=== PATIENT | female | born 1985 | race Caucasian/White ===

== ENCOUNTER 2024-09-21 12:31 | Emergency (ER) | payer MEDICARE, SELFPAY ==
[2024-09-21 12:39] VITALS: BP 117/83
[2024-09-21 13:00] LABS: % Basophils 0.8 % (0-2); % Eosinophils 2.5 % (0-6); % Immature Granulocytes 0.3 % (0-0.5); % Lymphocytes 28.5 % (20.5-51.1); % Monocytes 8.5 % (1.7-9.3); % Neutrophils 59.4 % (42.2-75.2); Absolute Basophils 0.1 10^3/uL (0-0.2); Absolute Eosinophils 0.2 10^3/uL (0-0.7); Absolute Lymphocytes 2.2 10^3/uL (1.2-3.4); Absolute Monocytes 0.7 10^3/uL (0.1-0.6); Absolute Neutrophils 4.7 10^3/uL (1.4-6.5); Hematocrit 41.1 % (37.0-47.0); Hemoglobin 14.1 g/dL (12.0-16.0); Mean Corp Hgb Conc. 34.3 g/dL (33.0-37.0); Mean Corpuscular Hgb 33.1 pg (27.0-31.0); Mean Corpuscular Volume 96.5 fL (81.0-99.0); Mean Platelet Volume 9.5 fL (7.4-10.4); Nucleated Red Blood Cells % 0 %; Platelet Count 291 10^3/uL (130-400); Red Blood Cell Count 4.26 10^6/uL (4.20-5.40); Red Cell Dist. Width 12.2 % (11.5-14.5); White Blood Cell Count 7.9 10^3/uL (4.8-10.8)
[2024-09-21 13:02] VITALS: BP 111/81
[2024-09-21 13:11] LABS: ALT (SGPT) 28 U/L (0-35); AST (SGOT) 20 U/L (14-36); Albumin 4.6 g/dl (3.5-5.0); Alkaline Phosphatase 60 U/L (38-126); Blood Urea Nitrogen 10 mg/dl (7-17); Calcium 9.9 mg/dl (8.4-10.2); Carbon Dioxide 27 mmol/L (22-30); Chloride 108 mmol/L (98-107); Estimated Creatinine Clearance 118 ml/min; Glucose 114 mg/dl (70-99); Potassium 4.6 mmol/L (3.5-5.1); Sodium 140 mmol/L (135-145); Total Bilirubin 0.4 mg/dl (0.2-1.3); Total Protein 7.3 g/dl (6.3-8.2); eGFR > 60.00
--- NOTE | 2024-09-21 13:35 | ED.GENMED ---
History of Present Illness
General
Chief Complaint: Problems
Source: patient
Exam Limitations: none
Time Seen by Provider: 09/21/24 13:23
History of Present Illness
History of Present Illness:
See MDM
Past History
Past History
ED Past Medical History: None
ED Past Surgical History: None
Social History
Tobacco: Non-smoker
Alcohol: None
Phy Exam
Physical Exam
Physical Exam:
See MDM
Course
Orders/Labs/Results
Orders:
Orders
09/21/24 12:51
Type And Crossmatch [Type+Screen] Urgent
Beta HCG Quantitative Urgent
Is this a screen?: No
Comment: 6.5 weeeks , threatened AB.
Complete Blood Count/With Diff Urgent
Comprehensive Metabolic Panel Urgent
TSH Reflex To Free T4 Urgent
Comment: ADD ON
09/21/24 13:12
ABO2 Urgent
BBK Wristband Number:
Associate notified that ABO2 has been ordered: Y
Date: 09/21/24
Time: 13:00
Spring Fitter ID: [id number]
09/21/24 13:34
Add On- LAB Urgent
Tests Added?: TSH reflex Free T4
09/21/24 13:36
Rho (D) Immune Globulin [Rhogam] 300 mcg IM ONCE ONE
09/21/24 13:39
* Blood Bank Products Urgent
Blood Bank Products: *Rhogam - Full Dose
Quantity: 300mg
Transfuse Today: Yes
Reason: Other
Other reason: Vaginal bleeding/miscarriage
09/21/24 13:45
US 1st Trimester Urgent
Reason For Exam: abd cramping, vaginal bleeding
09/21/24 13:48
0.9% Sodium Chloride 1000 ml [Nss] 1,000 ml IV BOLUS
Abnormal Lab Results
09/21/24
12:51
MCH 33.1 H pg
(27.0-31.0)
Absolute Monos (auto) 0.7 H 10^3/uL
(0.1-0.6)
Chloride 108 H mmol/L
(98-107)
Glucose 114 H mg/dl
(70-99)
09/21/24 12:51
09/21/24 12:51
Vital Signs
Initial and Last Documented VS:
Initial Vital Signs
Temp Pulse Resp BP Pulse Ox
98.4 F 104 16 117/83 99
09/21/24 12:39 09/21/24 12:39 09/21/24 12:39 09/21/24 12:39 09/21/24 12:39
Last Documented Vital Signs
Temp Pulse Resp BP Pulse Ox
98.4 F 102 16 111/81 99
09/21/24 12:39 09/21/24 13:02 09/21/24 13:02 09/21/24 13:02 09/21/24 13:01
Information
Weeks gestation: N/A
Location: N/A
MDM/Problems Addressed
Differential Diagnosis Includes:
HPI and MDM Narrative:
38-year-old female presenting for vaginal bleeding. Patient states she is about 6 and half weeks . She is G3, P0. Patient had recent ultrasound showing IUP with heartbeat. She developed significant bleeding this morning and abdominal
cramping. Patient is concerned about another miscarriage
On exam, she has a soft abdomen. She is appropriately tearful.
Patient states she is Rh-. Will order RhoGAM and obtain ultrasound
Physical exam
General: Well appearing and non-toxic
HEENT: protecting airway
Neck: appears supple
CV: No evidence of cyanosis
Resp: No accessory muscle use
Abd: Non-distended. Mild abdominal cramping
Extremities: No deformities
Neuro: alert
Psych: Tearful and upset
Skin: Intact
Problems Addressed including Acute and Chronic Conditions affecting care:
1. Vaginal bleeding
Acuity: acute
Prognosis: stable
Details: Likely in the setting of miscarriage. Will obtain ultrasound
Updates
Floor Molder called indicating empty uterus. Patient understands diagnosis of miscarriage and will follow-up with her OB
Differential Diagnosis (but not limited to): Vaginal bleeding, miscarriage
Testing considered: Urinalysis
Drug therapy (if applicable): OTC meds, please see d/c instruction regarding Rx drugs
Amount and/or Complexity of Data Reviewed
Clinical info obtained from: Patient
External data reviewed: N/A
Labs I independently reviewed (but not limited to): Hemoglobin normal
Radiology: Ultrasound report given verbally by door furring installer
Pulse Ox: not hypoxic
EKG independently reviewed: N/A
Tester Waste Disposal Leakage: N/A
Critical Care: N/A
Risk of Complication:
Social Determinants of health: Good social support
Discussed with other providers: N/A
Escalation of Care includes Admit/Obs: After being observed in the Emergency Department, pt stable for discharge.
Occasional wrong word or 'sound a like' substitutions may have occurred due to the inherent limitations of voice recognition software. Read the chart carefully and recognize, using context, where substitutions have occurred.
*Critical Care Note
Total Time (30-74mins, 75-104mins- exclusive of procedures): Not Applicable
ED Attending Note
-
Portions of this chart may have been created with voice recognition software.� Occasional wrong word or��sound alike� substitutions may have occurred due to the inherent limitations of voice recognition software.
Discharge Plan
Departure
Patient Disposition: Home (Routine Discharge)
Date of Disposition: 09/21/24
Time of Disposition: 14:51
Patient with high blood pressure during this ER visit?: No
Discharge Problem:
Complete miscarriage
Instructions: Miscarriage (DC)
Prescriptions:
No Action
No Current Medications
0
Referrals:
Bebe Mancilla MD [Family Provider] -
Activity Restrictions/Additional Instructions:
Please follow-up with your ADMINISTRATIVE VOLUNTEER. Return for worsening symptoms.
Interventions
Interventions:
*Risk Screen - Suicide Last Done: 09/21/24 12:57
*General Assessment Last Done: 09/21/24 12:57
*Neglect/Abuse Screening Last Done: 09/21/24 12:57
*ED- Fall Risk Assessment Last Done: 09/21/24 12:57
*ED COVID-19 Vaccine History Last Done: 09/21/24 12:57
ED-Female Genitourinary Assessment Last Done: 09/21/24 12:57
Discharge Date and Time
Print Language: [email or web address]
[2024-09-21] MEDS: NSS 1000 IV (13:49)
[2024-09-21 14:24] VITALS: BP 116/83
[2024-09-21 14:29] LABS: TSH Reflex To Free T4 1.84 uIU/ml (0.47-4.68)
[2024-09-21] MEDS: RHOGAM 300 MCG IM (14:36)
[2024-09-21] MEDS: TORADOL 30 MG IV (14:58)
[2024-09-21 15:00] VITALS: BP 121/72
== END 2024-09-21 15:04 | disposition home or self-care (01) ==
LOC: EMR 12:31
PROVIDERS: Emergency Medicine; EMERGENCY PHYSICIAN Student in an Organized Health Care Education/Training Program; FAMILY PHYSICIAN Obstetrics & Gynecology
DX: O03.9 Complete or unspecified spontaneous abortion without complication (principal); R10.9 Unspecified abdominal pain
CPT/HCPCS: 99284; 96374; 96361; 96372; 90384; 76801; 80053; 84443; 84702; 85025; 86850; 86900; 86901; J2790